=== PATIENT | male | born 1970 | race Asian ===

== ENCOUNTER 2016-10-28 14:15 | Emergency (ER) | payer BC, OTHER ==
[2016-10-28 14:25] VITALS: BP 124/80; PULSE 73; TEMP 98; BMI 30.5
[2016-10-28] MEDS ORDERED: NAPROXEN 375 MG TABLET (FP) PO ONE (15:26)
[2016-10-28] MEDS ORDERED: NAPROXEN 375 MG TABLET (FP) ONE (15:31)
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
== END 2016-10-28 15:40 | disposition home or self-care (01) ==
LOC: FER 14:15
DX: S40.022A Contusion of left upper arm, initial encounter (principal)
CPT/HCPCS: 99282-25